=== PATIENT | female | born 2000 | race Caucasian/White ===

== ENCOUNTER 2024-12-14 08:00 | Emergency (ER) | payer OTHER, SELFPAY ==
[2024-12-14 08:10] VITALS: BP 149/92; PULSE 86; RESP 17; TEMP 36.8; O2SAT 98; BMI 36.8
--- NOTE | 2024-12-14 08:10 | ED_ITS ---
HPI - SOB/Dyspnea
--- NOTE | 2024-12-14 08:10 | ED.SOB ---
HPI - SOB/Dyspnea General Chief Complaint: Asthma Stated Complaint: Asthma issues, 4 days Time Seen by Provider: 12/14/24 08:05 Source: patient, RN notes reviewed and old records reviewed Mode of arrival: Ambulatory Limitations: no limitations History of Present Illness HPI Narrative: 24-year-old female with a history of asthma, prior thyroglossal duct surgery who presents with complaint of asthma exacerbation for the past 4 days. She states she uses her inhaler rarely. She states she has only used it once in the last 24 hours but has felt very tight. Patient states she has some discomfort when she coughs. She denies any fevers, she has had nonproductive cough. She has a little bit of nasal congestion. She denies any nausea or vomiting. No other GI or urinary symptoms. No swelling in extremities. Patient states she has a maintenance steroid inhaler that she uses daily but that she would develop resistance to it. Patient denies any other daily medications. Reports an allergy to amoxicillin with hives. No tobacco, alcohol or recreational drugs. Related Data Previous Rx's ?Medication ?Instructions ?Recorded albuterol sulfate 90 mcg/actuation 2 puff inhalation Q4-6H PRN 12/14/24 aerosol inhaler shortness of breath or wheezing #8.5 grams prednisone 10 mg tablets in a dose See Rx Instructions PO .COMPLEX 12/14/24 pack #21 ea Allergies Allergy/AdvReac Type Severity Reaction Status Date / Time amoxicillin Allergy Hives Verified 12/14/24 08:11 Review of Systems Review of Systems ROS Unobtainable: All systems reviewed & are unremarkable except as noted in HPI and below Patient History Social History Smoking Status: Never smoker Exam Narrative Exam Narrative: GEN: well nourished, well appearing female, alert and oriented x 3, patient appears to be in mild distress. HEENT: Atraumatic, pupils are equal round reactive to light, extraocular movements are intact, nares are clear, TMs are clear with no fluid, there is no conjunctival pallor. Throat is clear without any exudates, erythema, tonsillar enlargement or uvular deviation HEART: Regular rate and rhythm without murmur, clicks, rubs. LUNGS:Lungs sounds are slightly decreased movement bilaterally, faint wheeze right greater than left. No rales, crackles, chest moves symmetrically, no tachypnea accessory muscle use patient is speaks in full sentences. ABD:bowel sounds normal, soft, non-tender, no guarding, rebound, rigidity, no masses noted, no hepatosplenomegaly MSCL: full range of motion, normal gait NEURO:CN 2-12 intact, sensation normal Initial Vital Signs Initial Vital Signs: Vital Signs Temperature 98.2 F 12/14/24 08:10 Pulse Rate 86 12/14/24 08:10 Respiratory Rate 17 12/14/24 08:10 Blood Pressure 149/92 H 12/14/24 08:10 Pulse Oximetry 98 12/14/24 08:10 Oxygen Delivery Method Room Air 12/14/24 08:10 Course Orders Ordered: Discontinued Medications Albuterol/Ipratropium (Albuterol/Ipratropium 3 Ml Ampul) 3 ml INH NOW ONE Stop: 12/14/24 08:11 Last Admin: 12/14/24 08:20 Dose: 3 ml Documented By: MIKE Prednisone (Prednisone 20 Mg Tablet) 60 mg PO NOW ONE Stop: 12/14/24 08:11 Last Admin: 12/14/24 08:52 Dose: 60 mg Documented By: SHANNON Vital Signs Vital signs: Vital Signs - 8 hr 12/14/24 08:10 Temperature 98.2 F Pulse Rate 86 Respiratory Rate 17 Blood Pressure 149/92 H Pulse Oximetry 98 Oxygen Delivery Method Room Air MDM - SOB/Dyspnea MDM Narrative Medical decision making narrative: Chest x-ray was negative for acute change. Patient received DuoNeb and oral prednisone here in the department. On rechecked she is feeling much improved and feels comfortable with discharge home. She requests a refill for her albuterol and we will give prescription for prednisone. Discussed return precautions. Discharge Plan Departure Patient Disposition: Home Clinical Impression: Asthma with acute exacerbation Instructions: DI for Asthma -- Adult Activity Restrictions/Additional Instructions: Follow up as needed. Continue your albuterol you can do 2-4 puffs every 4 hours as needed for symptoms. Continue to use your spacer with your albuterol inhaler. Take oral prednisone until completed you can take your next dose tomorrow. Prescription sent to [facility] in [place]. Please return if you develop new chest pain, increased shortness of breath, fevers, bloody or productive cough, increasing difficulty breathing, new swelling of your extremities or other new or concerning changes. Prescriptions: New prednisone 10 mg tablets,dose pack See Rx Instructions .ROUTE .COMPLEX Qty: 21 0RF Rx Instructions: 6 tabs p.o. x1 day, then 5 tabs p.o. x1 day, then 4 tablets p.o. x1 day, then 3 tabs p.o. x1 day, then 2 tabs p.o. x1 day, then 1 tab p.o. x1 day albuterol sulfate 90 mcg/actuation HFA aerosol inhaler 2 puff inhalation Q4-6H PRN (Reason: shortness of breath or wheezing) Qty: 8.5 0RF Stand Alone Forms: Patient Portal/API
--- NOTE | 2024-12-14 08:12 | DI.RAD.S_ITS ---
PROCEDURE: XR CHEST 2V
[2024-12-14] MEDS: ALBUTEROL/IPRATROPIUM 3 ML AMPUL INH (08:20)
[2024-12-14 09:36] VITALS: BP 134/87; PULSE 83; RESP 16; O2SAT 98
== END 2024-12-14 09:39 | disposition home or self-care (01) ==
PROVIDERS: Emergency Provider Emergency Medicine
DX: J45.901 Unspecified asthma with (acute) exacerbation (principal)
CPT/HCPCS: 71046; 99283